=== PATIENT | female | born 1980 | race Caucasian/White ===

== ENCOUNTER 2019-04-11 16:00 | Observation (INO) ==
[2019-04-11 16:32] LABS: BASO# 0.03 X1000 (0.0-0.2); BASO% 0.2 % (0.0-0.8); EOS# 0.03 X1000 (0.0-0.7); EOS% 0.2 % (0.0-10.0); HEMATOCRIT 39.2 % (37.0-47.0); HEMOGLOBIN 13.1 g/dL (12.0-16.0); IMM GRAN# 0.09 X1000 (0.0-0.04); IMM GRAN% 0.5 % (0.0-0.5); LYMPH# 1.45 X1000 (1.2-3.4); LYMPH% 7.9 % (20.5-51.1); MCHC 33.4 g/dL (33-37); MCV 92.9 FL (81-99); MONO# 1.13 X1000 (0.11-0.59); MONO% 6.2 % (1.7-9.3); MPV 9.6 FL (7.4-10.4); NEUT# 15.58 X1000 (1.4-6.5); PLT 320 X1000 (130-400); RBC 4.22 XMIL (4.2-5.4); RDW 13.2 % (11.5-14.5); WBC 18.31 X1000 (4.8-10.8)
[2019-04-11 16:38] LABS: BILIRUBIN URINE NEGATIVE (NEGATIVE); BLOOD URINE NEGATIVE (NEGATIVE); CLARITY SL. CLOUDY (CLEAR); COLOR YELLOW; KETONE URINE 3+(Large) mg/dL (NEGATIVE); LEUKOCYTES URINE 1+ (NEGATIVE); NITRITE URINE NEGATIVE (NEGATIVE); PROTEIN URINE 2+(100 mg/dL) mg/dL (NEGATIVE); SP GRAVITY URINE 1.015; UROBILINOGEN URINE NORMAL
[2019-04-11 16:39] LABS: URINE SOURCE CLEAN CATCH
[2019-04-11 16:41] LABS: URINE BACTERIA 4+ /HFP; URINE CAST NONE SEEN /LPF; URINE CRYSTAL NONE SEEN /HPF; URINE EPITHELIAL CELLS >10 /HPF (<10); URINE RBC <10 /HPF (<10); URINE WBC <10 /HPF (<10); URINE YEAST NONE SEEN /HPF
[2019-04-11 16:48] LABS: AGAP 14; ALKALINE PHOSPHATASE 54 U/L (32-104); BUN 22 mg/dL (8-22); CALCIUM 8.9 mg/dL (8.8-10.2); CHLORIDE 106 mmol/L (98-107); COSMO 291; CREATININE 0.7 mg/dL (0.5-0.9); ESTIMATED GFR > 60; GLUCOSE 173 mg/dL (70-104); GOT 11 U/L (10-30); GPT 11 U/L (10-36); POTASSIUM 4.1 mmol/L (3.5-5.1); SODIUM 142 mmol/L (136-145); TCO2 21 mmol/L (25-35); TOTAL PROTEIN 6.7 g/dL (6.3-8.3)
[2019-04-11 19:04] LABS: MAGNESIUM 1.6 mg/dL (1.5-2.7); PHOSPHORUS 2.2 mg/dL (2.7-4.5)
[2019-04-11] MEDS ORDERED: PROTONIX IV ONE (19:17)
[2019-04-11] MEDS ORDERED: SODIUM CHLORIDE 0.9% INJ ONE (19:17)
[2019-04-11] MEDS ORDERED: M.V.I.-12 10 ML, FOLIC ACID 1 MG, MAGNESIUM SULFATE 1 GM, THIAMINE 100 MG in NS 1,000 ML IV ONE (19:17)
[2019-04-11] MEDS ORDERED: ZOFRAN IV ONE (19:22)
[2019-04-11] MEDS ORDERED: ROCEPHIN 1 GM in NS 50 ML IV ONE (20:32)
[2019-04-11] MEDS ORDERED: LR 1,000 ML IV ONE (22:03)
--- NOTE | 2019-04-11 22:45 | PROVIDER DOCUMENTATION ---
This chart was entered by Srinivas Garcia Scribe, acting as scribe for Luis Daniel Harvey MD. HPI-Abdominal Pain/GI Problem - General Chief Complaint: N/V/D Stated Complaint: D / V WITH BLOOD / HEADACHE Time Seen by Provider: 04/11/19 19:15 Source: patient Allergies/Adverse Reactions: Patient Allergies Allergy/AdvReac Type Severity Reaction Status Date / Time butorphanol tartrate * Allergy Intermediate FLUSHING Verified 12/16/13 18:03 [From Stadol] Home Medications: Home Medication List Medication Instructions Recorded Confirmed Last Taken Type Duloxetine [Cymbalta] 60 mg PO DAILY 12/15/13 12/15/13 12/15/13 09:00 History Pnv Comb.no58/Iron Bisgly/FA 1 each PO 12/15/13 12/15/13 12/15/13 09:00 History [ Capsule] Hydrocodone/APAP 5 mg/325 mg 1 each PO Q4H PRN PRN #20 tablet 12/19/13 Unknown Rx [Ovid-5] Ibuprofen [Motrin] 800 mg PO Q8H PRN PRN #30 tablet 12/19/13 Unknown Rx - History of Present Illness-ABD Nature of Presenting Problems: Pt is a 38 yof who presents to the ED with a CC of nausea and vomiting. Pt states she drank 6-8 beers last night and became nauseas this morning at approximately 0700 and then vomited. Pt states she then began vomiting at approximately 1500 and hard dark blood in her vomit. Pt reports having two episodes of dark blood in her vomit. Pt also complains of having chills and being sweaty. Pt denies a hx of peptic ulcer disease. Abdominal Pain Onset Location: reports: epigastric Pain Radiation: reports: no radiation Quality of Pain: reports: aching Severity in ED: reports: mild Onset/Duration: reports: this morning Timing: reports: still present Exposure to sick contacts?: No Associated Symptoms: reports: nausea, vomiting Last BM: unsure # of Vomiting Episodes: 3 Emesis Description: reports: blood-streaked, other (Dark) Bruising or Bleeding Gums?: No Similar Symptoms Previously?: No Recently seen or treated by another doctor?: No Review of Systems - Adult - REVIEW OF SYSTEMS - ADULT Constitutional: reports: see HPI, chills. denies: fever, fatique, night sweats, weight loss Eyes: reports: no symptoms reported Ears, Nose, Mouth & Throat: reports: no symptoms reported Cardiovascular: reports: no symptoms reported Respiratory: reports: no symptoms reported Gastrointestinal: reports: see HPI, abdominal pain, hematemesis, nausea, vomiting. denies: constipation, diarrhea, difficulty swallowing, frequent heartburn Genitourinary: reports: no symptoms reported Musculoskeletal: reports: no symptoms reported Integumentary: reports: no symptoms reported Neurological: reports: no symptoms reported Psychiatric: reports: no symptoms reported Endocrine: reports: no symptoms reported Hematologic/Lymphatic: reports: no symptoms reported Allergic/Immunologic: reports: no symptoms reported All Other Systems: Reviewed and Negative Past History - Adult - PAST MEDICAL HISTORY-ADULT Review of Records: reports: Old Records Reviewed, Nursing Assessment Review, Medications Reviewed, Social history reviewed & non-contributory. Major Childhood Illnesses: reports: denies history Cardiovascular: reports: denies history Respiratory: reports: denies history Gastrointestinal: reports: denies history Obstetrical/Gynecological: reports: denies history Genitourinary: reports: denies history Musculoskeletal: reports: denies history Neurological: reports: denies history Endocrine/Immune: reports: Diabetes Diabetes Type: Type 2 Other Conditions: reports: denies history - IMMUNIZATION STATUS Childhood Immunizations: See Nurse Assessment Flu Vaccine: See Nurse Assessment - FAMILY HISTORY Family History: reviewed, not pertinent Physical Exam-General - PHYSICAL EXAM-ADULT Initial Vital Signs Reviewed: Yes - CONSTITUTIONAL General Appearance: appears well, alert, mild distress. negative: cachetic, obese, thin, anxious, lethargic, slow to respond, obtunded - EYES Eyes: PERRL/EOMI. negative: photophobia, sclera injected, scleral icterus - NECK Neck: non-tender, full range of motion. negative: carotid bruit, C-spine tenderness, limited range of motion, lymphadenopathy, meningismus - RESPIRATORY Respiratory: chest non-tender, lungs clear, normal breath sounds, no pleuratic chest pain, no respiratory distress, no accessory muscle use. negative: accessory muscle use, crackles, rales, rhonchi, stridor, wheezing, dull on percussion, decreased rate - CARDIOVASCULAR Cardiovascular: normal peripheral pulses, regular rate, rhythm, no edema, no gallop, no JVD, no murmur. negative: bradycardia, tachycardia, diastolic murmur, systolic murmur, gallop/S3, extra beats, friction rub - GASTROINTESTINAL (ABDOMEN) Abdominal Exam: soft, tenderness (Mildly). negative: abnormal bowel sounds, distended, guarding, rigid, rebound, hernia, mass, hepatomegaly, splenomegaly - MUSCULOSKELETAL Extremity: normal range of motion, non-tender. negative: calf tenderness, deformity, erythema, inflammation - SKIN Integumentary: normal color, normal turgor, warm/dry. negative: abrasion(s), diaphoresis, decubitus, dependent lividity, jaundice, laceration(s), mottled, pallor, petechiae - NEUROLOGIC Neurologic: grossly normal, no motor/sensory deficits. negative: aphasia, EOM palsy, facial droop, focal weakness, motor weakness - PSYCHIATRIC Psych/Mental Status: normal mood/affect, normal thought content, normal thought process, oriented x 3. negative: disoriented x 3, anxious, disheveled, depressed affect, paranoid Progress - PLAN OF CARE/RESULTS Progress/Plan/Lab Results: Vital Signs - 8 hr 04/11/19 16:12 Temperature 98.1 F Pulse Rate 113 H Respiratory Rate 18 Blood Pressure 116/87 O2 Sat by Pulse Oximetry 96 Bedside Urine ED: Urine Bedside Start: 04/11/19 16:19 Freq: ORDERED Status: Complete Protocol: Activity Type Activity Date Activity User E-Sign Co-Sign Detail Recorded Client Recorded Date Recorded By Document 04/11/19 16:21 [id number] 04/11/19 16:22 [id number] Edit Status 04/11/19 18:52 [id number] Active=>Complete [id number] 04/11/19 18:52 [id number] 04/11/19 16:21 Point of Care [Bedside Point of Care] -Lot # [id number] - Results Negative -Control Line Visible? Yes Laboratory Results - last 24 hr 04/11/19 04/11/19 04/11/19 16:19 16:26 16:26 WBC 18.31 H RBC 4.22 Hgb 13.1 Hct 39.2 MCV 92.9 MCH 31.0 MCHC 33.4 RDW Std Deviation 13.2 Plt Count 320 MPV 9.6 Immature Gran % (Auto) 0.5 Neut % (Auto) 85.0 H Lymph % (Auto) 7.9 L [place] % (Auto) 6.2 Eos % (Auto) 0.2 Baso % (Auto) 0.2 Immature Gran # (Auto) 0.09 H Neut # (Auto) 15.58 H Lymph # (Auto) 1.45 [place] # (Auto) 1.13 H Eos # (Auto) 0.03 Baso # (Auto) 0.03 Sodium 142 Potassium 4.1 Chloride 106 Carbon Dioxide 21 L Anion Gap 14 BUN 22 Creatinine 0.7 Estimated GFR/1.73 m2 > 60 BUN/Creatinine Ratio 31 Glucose 173 H Calculated Osmolality 291 Calcium 8.9 Phosphorus Magnesium Total Bilirubin 0.70 AST 11 ALT 11 Alkaline Phosphatase 54 Total Protein 6.7 Albumin 4.0 Globulin 3.0 Albumin/Globulin Ratio 1.0 Urine Source CLEAN CATCH Urine Color YELLOW Urine Clarity SL. CLOUDY A Urine pH 7.0 Ur Specific [place] 1.015 Urine Protein 2+(100 mg/dL) A Urine Ketones 3+(Large) A Urine Blood NEGATIVE Urine Nitrite NEGATIVE Urine Bilirubin NEGATIVE Urine Urobilinogen NORMAL Urine Microscopic RBC <10 Urine WBC 1+ A Urine Microscopic WBC <10 Ur Epithelial Cells >10 A Urine Crystals NONE SEEN Urine Bacteria 4+ Urine Casts NONE SEEN Urine Yeast NONE SEEN Urine Glucose TRACE(50 mg/dL) A Plasma/Serum Ethyl Alc 04/11/19 04/11/19 16:26 16:26 WBC RBC Hgb Hct MCV MCH MCHC RDW Std Deviation Plt Count MPV Immature Gran % (Auto) Neut % (Auto) Lymph % (Auto) [place] % (Auto) Eos % (Auto) Baso % (Auto) Immature Gran # (Auto) Neut # (Auto) Lymph # (Auto) [place] # (Auto) Eos # (Auto) Baso # (Auto) Sodium Potassium Chloride Carbon Dioxide Anion Gap BUN Creatinine Estimated GFR/1.73 m2 BUN/Creatinine Ratio Glucose Calculated Osmolality Calcium Phosphorus 2.2 L Magnesium 1.6 Total Bilirubin AST ALT Alkaline Phosphatase Total Protein Albumin Globulin Albumin/Globulin Ratio Urine Source Urine Color Urine Clarity Urine pH Ur Specific [place] Urine Protein Urine Ketones Urine Blood Urine Nitrite Urine Bilirubin Urine Urobilinogen Urine Microscopic RBC Urine WBC Urine Microscopic WBC Ur Epithelial Cells Urine Crystals Urine Bacteria Urine Casts Urine Yeast Urine Glucose Plasma/Serum Ethyl Alc Orders Category Date Time Status ED: Urine Bedside ORDERED Care 04/11/19 16:19 Completed ALCOHOL BLOOD Stat Lab 04/11/19 16:26 Completed AMMONIA [CHEM] Stat Lab 04/11/19 18:40 Ordered CBC WITH DIFF [HEME] Stat Lab 04/11/19 16:26 Completed COMPREHENSIVE METABOLIC PANEL [CHEM] Stat Lab 04/11/19 16:26 Completed MAGNESIUM [CHEM] Stat Lab 04/11/19 16:26 Completed PHOSPHORUS [CHEM] Stat Lab 04/11/19 16:26 Completed TEST-URINE [PREG] Stat Lab 04/11/19 18:55 Ordered TYPE & SCREEN [BBK] Stat Lab 04/11/19 19:[address] W/POSS RFLX CULT [URINALYSIS] Stat Lab 04/11/19 16:19 Completed URINE CULTURE [RM] Routine Lab 04/11/19 16:41 Ordered Mvi [M.v.i.-12] 10 ml Med 04/11/19 19:17 Active Folic Acid 1 mg Magnesium Sulfate 1 gm Thiamine 100 mg 0.9% Sodium Chloride Inj [Ns] 1,000 ml IV NOW Pantoprazole [Protonix] Med 04/11/19 19:17 Discontinued 40 mg IV NOW ONE Sodium Chloride 0.9% Med 04/11/19 19:17 Discontinued 10 ml INJ NOW ONE Result Diagrams: 04/11/19 16:26 04/11/19 16:26 - CONSULTS/PCP/HOSPITALIST Notification #1 *Consult/PCP/Hospitalist*: dr onur Rabago Discussed: 20:20 Consult Disposition: other (admit to hsopitalist at [facility]) #2 Consult: dr Moshe Rabago Discussed: 20:25 Consult Disposition: Admit (accepts admission to [facility]) Departure - Departure Date of Disposition Decision: 04/11/19 Time of Disposition Decision: 22:41 DIAGNOSIS: Nausea vomiting and diarrhea, Acute upper GI bleed, Weakness, Hyperglycemia, Newly diagnosed diabetes Disposition: ADMITTED INPATIENT 09 Certified Medical Emergency: Emergent Condition: Stable Referrals and Follow-Ups: Ronny Cottrell MD [Primary Care Provider] - - Critical Care Note This patient required my direct & personal management of CC.: No Attestation - Physician/ PEPITO Attestation Patient care was provided by Advanced Practice Provider:: No The physician spent face to face time with patient:: Yes Advanced Practice Provider documentation review:: Supervising physician onsite and consulted in the evaluation and care of this patient. The physician did have a face to face encounter with the patient. This chart was documented by the indicated scribe, (Srinivas Garcia, Mir) and accurately reflects the services I performed and decisions made by me, Luis Daniel Harvey MD, as attested by the provider's signature.
[2019-04-12] MEDS ORDERED: NS 1,000 ML IV ONE (00:48)
[2019-04-12] MEDS ORDERED: ZOFRAN IV PRN (00:48)
[2019-04-12] MEDS ORDERED: PHENERGAN IV PRN (03:55)
[2019-04-12] MEDS ORDERED: SODIUM CHLORIDE 0.9% INJ PRN (03:55)
[2019-04-12 05:08] LABS: URINE SOURCE CLEAN CATCH
[2019-04-12 05:23] LABS: BILIRUBIN URINE NEGATIVE (NEGATIVE); BLOOD URINE NEGATIVE (NEGATIVE); COLOR YELLOW; GLUCOSE URINE NEGATIVE (NEGATIVE); KETONE URINE 20 mg/dL (NEGATIVE); LEUKOCYTES URINE NEGATIVE (NEGATIVE); NITRITE URINE NEGATIVE (NEGATIVE); PROTEIN URINE TRACE mg/dL (NEGATIVE); SP GRAVITY URINE 1.028; TURBIDITY URINE HAZY (CLEAR); UR EPITHELIAL CELLS <10 /HPF (<10); URINE BACTERIA NEGATIVE /HPF; URINE RBC <10 /HPF (<10); URINE WBC <10 /HPF (<10); UROBILINOGEN URINE NORMAL (NORMAL)
[2019-04-12 06:59] LABS: AGAP 9; AMYLASE 21 U/L (20-200); BUN 19 mg/dL (8-22); CALCIUM 8.5 mg/dL (8.8-10.2); CHLORIDE 106 mmol/L (98-107); COSMO 286; CREATININE 0.9 mg/dL (0.5-0.9); ESTIMATED GFR > 60; GLUCOSE 112 mg/dL (70-104); LIPASE 17 U/L (13-60); MAGNESIUM 2.2 mg/dL (1.5-2.7); POTASSIUM 4.3 mmol/L (3.5-5.1); SODIUM 142 mmol/L (136-145); TCO2 27 mmol/L (25-35)
[2019-04-12 07:05] LABS: BASO# 0.03 X1000 (0.0-0.2); BASO% 0.3 % (0.0-0.8); EOS# 0.06 X1000 (0.0-0.7); EOS% 0.6 % (0.0-10.0); HEMATOCRIT 33.5 % (37.0-47.0); HEMOGLOBIN 10.7 g/dL (12.0-16.0); IMM GRAN# 0.03 X1000 (0.0-0.04); IMM GRAN% 0.3 % (0.0-0.5); LYMPH# 1.81 X1000 (1.2-3.4); LYMPH% 19.2 % (20.5-51.1); MCH 30.2 PG (27-31); MCHC 31.9 g/dL (33-37); MCV 94.6 FL (81-99); MONO# 0.77 X1000 (0.11-0.59); MONO% 8.2 % (1.7-9.3); MPV 9.9 FL (7.4-10.4); NEUT# 6.74 X1000 (1.4-6.5); NEUT% 71.4 % (42.2-75.2); PLT 272 X1000 (130-400); RBC 3.54 XMIL (4.2-5.4); RDW 13.3 % (11.5-14.5); WBC 9.44 X1000 (4.8-10.8)
[2019-04-12 07:09] LABS: HEMOGLOBIN A1C 5.5 % (4.8-6.0)
--- NOTE | 2019-04-12 08:07 | Diag Imaging Result Doc PS360 ---
EXAM: FLAT/UPRIGHT ABD/1 VIEW CHEST INDICATION: N/V TECHNIQUE: 3 views COMPARISON: None. FINDINGS: An NG tube is in place. The tip projects well below the diaphragm and assumed to be in the lumen of the stomach in expected position. There is minimal patchy small bowel gas in the left lower quadrant and left mid abdomen. There is no significant bowel distention. There is nothing that would necessarily suggest bowel obstruction. An IUD is in place. There is no evidence of large volume free abdominal gas. There is no evidence of organomegaly. There is minimal atelectasis at the right lung base. The lungs are grossly clear, otherwise. There is no discrete pleural fluid collection or pneumothorax. The cardiomediastinal silhouette and central vasculature are grossly unremarkable. IMPRESSION: Nonspecific abdomen. Electronically signed by Richie Knight 04/12/2019 8:05 AM
[2019-04-12] MEDS: D5 NS 1,000 ML IV SCH ×2 (09:59→20:45)
[2019-04-12] MEDS: NEXIUM IV SCH ×2 (10:00→20:56)
--- NOTE | 2019-04-12 11:54 | PROGRESS NOTE ---
DATE: 04/12/2019 SUBJECTIVE: This patient is resting comfortably in bed. Apparently, she rested the whole night. No more nausea or vomiting during the night but, as per the patient, she had a couple episodes of vomiting with dark blood, coffee-grounds emesis. I will remove the NG tube. OBJECTIVE: Vital Signs: Temperature 98.9 degrees, pulse 96, respiratory rate 20, blood pressure 132/86, oxygen saturation 98 on room air. HEENT: Head normocephalic. No trauma. PERRLA. Neck: Supple. No JVD. No masses. Central trachea. Chest: Clear to auscultation. No wheezing. No rales. Abdomen: Soft, nontender, nondistended. No hepatosplenomegaly. Extremities: No edema, no clubbing, no cyanosis. Neurological Examination: The patient is alert and oriented x3. No focal deficits. Laboratory: WBC 9.4, hemoglobin 10.7, hematocrit 33.5, and platelets 272,000. Sodium 142, potassium 4.3, chloride 106, bicarbonate 27, BUN 19, creatinine 0.9, glucose 112, calcium 8.5, magnesium 2.2. ASSESSMENT AND PLAN: 1. Hematemesis. Apparently, this patient had two episodes of large amount of dark blood coming out from her mouth. She has been placed on fluid and also proton pump inhibitors. We will continue with the same management. Gastroenterology department has been consulted. 2. History of anxiety. This patient has been on Cymbalta at home. We will reassume that as soon as this patient is tolerating oral intake. 3. Nausea and vomiting, better. Continue with the same management. cc: Brian Skinner MD
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
[2019-04-12] MEDS: SODIUM CHLORIDE 0.9% INJ SCH (20:56)
[2019-04-13 06:49] LABS: BASO# 0.02 X1000 (0.0-0.2); BASO% 0.3 % (0.0-0.8); EOS# 0.14 X1000 (0.0-0.7); EOS% 2.1 % (0.0-10.0); HEMATOCRIT 31.7 % (37.0-47.0); HEMOGLOBIN 9.9 g/dL (12.0-16.0); IMM GRAN# 0.02 X1000 (0.0-0.04); IMM GRAN% 0.3 % (0.0-0.5); LYMPH# 1.96 X1000 (1.2-3.4); LYMPH% 29.3 % (20.5-51.1); MCH 29.8 PG (27-31); MCHC 31.2 g/dL (33-37); MCV 95.5 FL (81-99); MONO# 0.51 X1000 (0.11-0.59); MONO% 7.6 % (1.7-9.3); MPV 9.8 FL (7.4-10.4); NEUT# 4.05 X1000 (1.4-6.5); NEUT% 60.4 % (42.2-75.2); PLT 248 X1000 (130-400); RBC 3.32 XMIL (4.2-5.4); RDW 13.3 % (11.5-14.5)
[2019-04-13 07:11] LABS: AGAP 11; BUN 7 mg/dL (8-22); CALCIUM 7.6 mg/dL (8.8-10.2); CHLORIDE 109 mmol/L (98-107); COSMO 282; CREATININE 0.7 mg/dL (0.5-0.9); ESTIMATED GFR > 60; GLUCOSE 113 mg/dL (70-104); SODIUM 142 mmol/L (136-145); TCO2 22 mmol/L (25-35)
[2019-04-13] MEDS: NEXIUM IV SCH (09:00)
[2019-04-13] MEDS: SODIUM CHLORIDE 0.9% INJ SCH (09:53)
[2019-04-13 11:57] VITALS: BP 113/82
--- NOTE | 2019-04-13 17:49 | GASTROENTEROLOGY PROGRESS NOTE ---
DATE: 04/13/2019 SUBJECTIVE: She is resting in bed. She is feeling better. She denies any nausea, vomiting, vomiting blood, or passing blood in the stools. She is eating better. OBJECTIVE: Vital signs: Temperature 98.4 degrees, pulse 74, respiratory rate 16, blood pressure 130/82, saturating 100% on room air. Body weight of 181 pounds 9 ounces. BMI 32.2 kg. General appearance: Moderately nourished, lying in bed, in no acute distress. HEENT: Pale with no icterus. Neck: Supple. Abdomen: Soft, nontender nondistended. No guarding or rebound. Extremities: No cyanosis or clubbing. Neurologic: She is alert, awake, oriented x3. LABORATORY DATA: 1. Hemoglobin and hematocrit is 9.9 and 31.7. White count of 6.7, platelet count of 248, sodium of 140, potassium 4, chloride 109, bicarb 22, anion gap 11, BUN of 7, creatinine 0.7, glucose 113, calcium 7 6. 2. Urinalysis showed trace protein and positive ketones. test is negative. 3. Urine culture showing mixed moi. IMAGING: Abdominal x-ray showed nonspecific abdomen. IUD is in place. IMPRESSION AND PLAN: 1. Hematemesis, which is now resolved. 2. Mild anemia. 3. Anxiety. 4. Nausea and vomiting is improved. 5. Mild obesity. BMI of 32.2. RECOMMENDATIONS: We will keep the patient on Nexium twice daily. This can be transitioned to oral Nexium on discharge. The patient is feeling better. She is on a GI soft diet. She is tolerating well. The patient was recommended to avoid any NSAIDs. She will continue follow gastroesophageal reflux lifestyle changes. Patient will follow up in clinic in 1 week after discharge. At that time, we will plan for an outpatient EGD. The above plan was discussed with the patient. All questions answered. Please call us with any further questions. cc: MD Ronny Benz MD Omar J. Sosa-Chirinos, MD
--- NOTE | 2019-04-13 22:39 | DISCHARGE SUMMARY ---
ADMISSION DATE: 04/11/2019 DISCHARGE DATE: 04/13/2019 ADMISSION DIAGNOSIS: 1. Nausea, vomiting. 2. Possible upper gastrointestinal bleed. 3. Fluid volume depletion. 4. Leukocytosis. DISCHARGE DIAGNOSIS: 1. Nausea, vomiting, possibly related to gastritis. 2. Possible upper gastrointestinal bleed, resolved. 3. Fluid volume depletion, resolved. 4. Leukocytosis, resolved. 5. Depression. PROCEDURES AND FINDINGS: Abdominal x-ray on 04/11/2019 shows a nonspecific abdomen. CONSULTS: Dr. Chavira. HOSPITAL COURSE: Ms Cox is a 38-year-old female who presented to the ER at [place] on 04/11/2019 with complaints of nausea and vomiting. The patient states that she felt fine on Saturday, was not having symptoms. She went out and drank 7 to 8 beers. When she came and went to sleep she felt fine however she woke up at 6 a.m. Saturday morning and started feeling nauseous and started throwing up. The patient states that she did have an episode of vomiting with some maroon to coffee-grounds emesis and had 2 episodes of diarrhea. She denies any abdominal pain, indigestion, or heartburn. The patient was admitted to [facility]. Dr. Chavira was consulted. The patient was started on PPIs and given IV fluid hydration. Initial white blood cell count was 18.31. Today the white blood cell count came down to 6.70. Initial hemoglobin, hematocrit was 13.1 and 39.2. Today's hemoglobin, hematocrit is 9.9, 31.7. The patient is being discharged home today with self-care. She will be on followed with Dr. Chavira tomorrow. We will continue her PPI as recommended by Dr. Chavira. As this patient is not having more episodes of nausea or vomiting and has not had any more cough [*] emesis noted. DISCHARGE LAB DATA: Sodium 142, potassium 4.0, chloride 109, carbon dioxide 22, BUN 7, creatinine 0.7, GFR greater than 60, glucose is 113, calcium is 7.6, phosphorus 4.0, magnesium is 2.2, amylase is 21, lipase is 17, ammonia level was 21. White blood cell count 6.70, hemoglobin 9.9, hematocrit 31.7, platelet count is 248,000. Urinalysis shows trace protein and ketones at 20. DISCHARGE MEDICATIONS: Cymbalta 60 mg p.o. daily, Nexium 40 mg p.o. b.i.d. DISCHARGE DIET: Resume diet as tolerated. DISCHARGE ACTIVITY: Resume normal activity as tolerated. DISPOSITION: The patient will discharge home with self care. She will follow up with Dr. Chavira tomorrow. Patient will continue Nexium as prescribed by . The patient will also follow up with Dr. Ronny Cottrell as needed. Dictated by NASIM Lobo for Brian Skinner MD cc: Ronny Cottrell MD
== END 2019-04-13 14:40 | disposition home or self-care (01) ==
LOC: P.ED 16:00 → 4N 16:00 → SUATTDRO 16:01 → 4N 04-12 00:26
PROVIDERS: ATTEND Internal Medicine
CPT/HCPCS: 74022; 80048; 80053; 80307; 80320; 81001; 81025; 82055; 82140; 82150; 83036; 83690; 83735; 84100; 85025; 86850; 86900; 86901; 87088; C9113; G0480; G6040; J0696; J2405; J3411; J3475; J7030; J7042; J7120; S0164